=== PATIENT | male | born 1950 | race Caucasian/White ===

== ENCOUNTER 2016-10-23 21:10 | Emergency (ER) | payer MEDICARE ==
[2014-11-27 01:49] VITALS: BMI 25.1
[~2016-10-23 21:10] MED LIST: HYDROCODONE-APA1 TAB PO; ROBITUSSIN DM 110 ML PO; XANAX0.5 MG PO
[2016-10-23 22:52] LABS: BASOPHILS 0.3 % (0.0-2.0); EOSINOPHILS 3.5 % (0-7); HEMATOCRIT 36.9 % (42.0-54.0); HEMOGLOBIN 12.8 g/dL (13.5-17.5); IMMATURE GRANULOCYTES 0.1 % (0-5); LYMPHOCYTES 31.9 % (15-50); MCH 37.8 pg (26.0-34.0); MCHC 34.7 g/dL (31.0-37.0); MCV 108.8 fL (80.0-100.0); MEAN PLATELET VOLUME 10.1 fL (7.4-10.4); MONOCYTES 8.4 % (2-11); NEUTROPHILS 55.8 % (40-80); PLATELET COUNT 182 10x3/uL (130-400); RBC 3.39 10x6/uL (4.20-6.10); RDW 13.7 % (11.5-14.5); WBC 7.6 10x3/uL (4.8-10.8)
[2016-10-23 23:08] LABS: ALBUMIN 3.4 g/dL (3.4-5.0); BILIRUBIN - TOTAL 0.31 mg/dL (0.2-1.3); CALCIUM 8.4 mg/dL (8.5-10.1); CARBON DIOXIDE 32.3 mmol/L (21.0-32.0); CREATININE - SERUM 1.1 mg/dL (0.6-1.3); POTASSIUM - SERUM 4.3 mmol/L (3.5-5.1); PROTEIN - SERUM 7.4 g/dL (6.4-8.2)
[2016-10-23 23:40] LABS: APPEARANCE CLEAR (CLEAR); BILIRUBIN NEGATIVE (NEGATIVE); COLOR YELLOW (YELLOW); GLUCOSE NEGATIVE (NEGATIVE); KETONE NEGATIVE (NEGATIVE); LEUKOCYTE ESTERASE NEGATIVE (NEGATIVE); NITRITE NEGATIVE (NEGATIVE); PH 6.5 (5.0-6.0); PROTEIN NEGATIVE (NEGATIVE); SPECIFIC GRAVITY 1.015 (1.005-1.020)
== END 2016-10-24 00:15 | disposition home or self-care (01) ==
LOC: D.ER 21:10
PROVIDERS: Emergency Medicine
DX: R60.0 Localized edema (principal); J44.9 Chronic obstructive pulmonary disease, unspecified; F17.200 Nicotine dependence, unspecified, uncomplicated

== ENCOUNTER 2018-11-05 14:32 | Emergency (ER) | payer MEDICARE ==
[~2018-11-05] VITALS: Ht 177.8 cm; Wt 72.7 kg
[2018-11-05 14:58] VITALS: Ht 177.8 cm; Wt 72.7 kg
[2018-11-05] MEDS ORDERED: BLOOD PRESSURE MED (15:00)
[2018-11-05 15:24] LABS: BASOPHILS 0.2 % (0-2); EOSINOPHILS 1.5 % (0-7); HEMATOCRIT 37.2 % (42.0-54.0); HEMOGLOBIN 12.8 g/dL (13.5-17.5); IMMATURE GRANULOCYTES 0.2 % (0-5); LYMPHOCYTES 20.4 % (15-50); MCH 33.7 pg (26.0-34.0); MCHC 34.4 g/dL (31.0-37.0); MCV 97.9 fL (80.0-100.0); MEAN PLATELET VOLUME 10.9 fL (7.4-10.4); MONOCYTES 8.1 % (2-11); NEUTROPHILS 69.6 % (40-80); PLATELET COUNT 191 10x3/uL (130-400); RDW 14.2 % (11.5-14.5); WBC 8.8 10x3/uL (4.8-10.8)
[2018-11-05 15:41] LABS: ALBUMIN 3.3 g/dL (3.4-5.0); ANION GAP 8.9 mmol/L (8-16); BILIRUBIN - TOTAL 0.41 mg/dL (0.2-1.3); CALCIUM 8.4 mg/dL (8.5-10.1); CARBON DIOXIDE 30.4 mmol/L (21.0-32.0); CREATININE - SERUM 1.2 mg/dL (0.6-1.3); POTASSIUM - SERUM 4.3 mmol/L (3.5-5.1); PROTEIN - SERUM 7.8 g/dL (6.4-8.2)
[2018-11-05] MEDS ORDERED: LASIX40 MG PO (19:26)
[2018-11-05 19:35] VITALS: BP 165/82
== END 2018-11-05 19:35 | disposition home or self-care (01) ==
LOC: D.ER 14:32
PROVIDERS: Emergency Medicine
DX: R60.0 Localized edema (principal)

== ENCOUNTER → 2018-12-10 11:46 | Outpatient (CLI) | payer MEDICARE ==
[2018-11-05 14:58] VITALS: BMI 23.0
[~2018-12-10 11:46] MED LIST changes: +BLOOD PRESSURE MED; +LASIX40 MG PO
== END | disposition home or self-care (01) ==
LOC: D.RAD 11:46
PROVIDERS: ATTEND Emergency Medicine
DX: M48.061 Spinal stenosis, lumbar region without neurogenic claudication (principal)

== ENCOUNTER → 2019-01-14 10:01 | Outpatient (CLI) | payer MEDICARE | END | disposition home or self-care (01) | LOC: D.RAD 10:01 | DX: J44.1 Chronic obstructive pulmonary disease with (acute) exacerbation (principal) ==

== ENCOUNTER → 2019-05-06 12:55 | Outpatient (CLI) | payer MEDICARE ==
[2018-11-05 14:58] VITALS: BMI 23.0
== END | disposition home or self-care (01) ==
LOC: D.RAD 12:55
PROVIDERS: ATTEND Family Medicine
DX: R13.10 Dysphagia, unspecified (principal)

== ENCOUNTER → 2020-05-26 09:31 | Outpatient (CLI) | payer MEDICARE ==
[2018-11-05 14:58] VITALS: BMI 23.0
== END | disposition home or self-care (01) ==
LOC: D.CT 09:31
PROVIDERS: ATTEND Family Medicine
DX: R91.1 Solitary pulmonary nodule (principal)

== ENCOUNTER 2020-06-03 07:31 | Day surgery (SDC) | payer MEDICARE ==
[~2020-06-03] VITALS: Ht 177.8 cm; Wt 56.3 kg
[2020-06-03 08:09] VITALS: BP 128/67; Ht 177.8 cm; Wt 56.3 kg
[2020-06-03 08:46] LABS: CALC OSMOLALITY 277 mosm/kg (275-300); CALCIUM 9.3 mg/dL (8.5-10.1); CHLORIDE - SERUM 95 mmol/L (98-107); CREATININE - SERUM 0.8 mg/dL (0.6-1.3); GLUCOSE 87 mg/dL (74-106); POTASSIUM - SERUM 4.4 mmol/L (3.5-5.1); SODIUM 139 mmol/L (136-145); UREA NITROGEN 15 mg/dL (7-18); eGFR NON AFRICAN AMERICAN > 90 mL/min (90-120)
[2020-06-03 08:59] LABS: BASOPHILS 0.1 % (0-2); EOSINOPHILS 0.1 % (0-7); HEMATOCRIT 31.4 % (42.0-54.0); HEMOGLOBIN 9.8 g/dL (13.5-17.5); LYMPHOCYTES 22.4 % (15-50); MCH 27.1 pg (26.0-34.0); MCHC 31.2 g/dL (31.0-37.0); MEAN PLATELET VOLUME 9.3 fL (7.4-10.4); MONOCYTES 7.9 % (2-11); NEUTROPHILS 67.5 % (40-80); RBC 3.61 10x6/uL (4.20-6.10)
[2020-06-03 09:00] LABS: PLATELET COUNT 243 10x3/uL (130-400)
[2020-06-03 09:02] LABS: APTT 44.9 SECONDS (22.8-39.4); INR 1.35 (0.85-1.17); PROTIME 16.6 SECONDS (11.6-15.0)
[2020-06-03] MEDS ORDERED: ZOLOFT25 MG PO (09:04)
[2020-06-03] MEDS ORDERED: MIRALAX17 GM PO (09:04)
[2020-06-03] MEDS ORDERED: LOPRESSOR25 MG PO (09:04)
[2020-06-03] MEDS ORDERED: THERMOTABS 1 GM1 GM PO (09:05)
[2020-06-03] MEDS ORDERED: ATROVENT 0.02%2.5 ML UPD (09:05)
[2020-06-03] MEDS ORDERED: ACETAMINOPHEN500 M1 PO (09:05)
[2020-06-03] MEDS ORDERED: ZOFRAN4 MG PO (09:05)
[2020-06-03] MEDS ORDERED: AZITHROMYCIN500 MG PO (09:06)
[2020-06-03] MEDS ORDERED: ZESTRIL10 MG PO (09:06)
[2020-06-03] MEDS ORDERED: MYAMBUTOL100 MG PO (09:06)
[2020-06-03] MEDS ORDERED: RIFADIN IV (09:07)
[2020-06-03] MEDS ORDERED: FLOMAX0.4 MG PO (09:07)
--- NOTE | 2020-06-03 11:20 | NUR ---
PT REC'D TO ROOM 2 FROM [facility] VIA STRETCHER, MONITORS ESTAB. NURSING AID FROM [facility] AT . SEE TIRE AND TUBE REPAIRER. ALARMS ON AND C/L IN REACH.
--- NOTE | 2020-06-03 11:35 | NUR ---
VSS. DSG TO BACK C/D/I. PT UPDATED ON POC, NPO UNTIL CXR AT 1300, THEN PLAN TO D/C AT 1500. PT DENIES PAIN OR NEEDS. ALARMS ON AND C/L IN REACH.
--- NOTE | 2020-06-03 12:05 | NUR ---
VSS. R UPPER BACK DSG C/D/I, NO REDNESS OR DRAINAGE NOTED.
--- NOTE | 2020-06-03 14:00 | NUR ---
CXR REVIEWED BY MD Bianca [place] TO RESUME DIET. SANDWICH AND SPRITE PROVIDED. SMELTER OPERATOR AT ASSISTING PT. VSS. C/L IN REACH.
--- NOTE | 2020-06-03 14:40 | NUR ---
R UPPER BACK DSG C/D/I, NO REDNESS OR DRAINAGE NOTED. VSS. PT DENIES PAIN OR SOB. PIV D/C'D INTACT, DSG APPLIED. PT UP TO GET DRESSED AND GO TO BR WITH RESOURCE DIRECTOR ASSISTING.
--- NOTE | 2020-06-03 14:50 | NUR ---
ALL DISCHARGE INSTRUCTIONS REVIEWED WITH PT. NO QUESTIONS AT THIS TIME.
--- NOTE | 2020-06-03 14:55 | NUR ---
PT DISCHARGED TO [facility] VIA OWN WC. PT HAS ALL BELONGINGS AND PAPERWORK..
== END 2020-06-03 14:55 | disposition home or self-care (01) ==
LOC: D.SP 07:31 → D.CT 10:00 → D.SP 10:00
PROVIDERS: Radiology Diagnostic Radiology; ATTEND Family Medicine
DX: R91.1 Solitary pulmonary nodule (principal); J85.0 Gangrene and necrosis of lung; B96.89 Other specified bacterial agents as the cause of diseases classified elsewhere; E11.9 Type 2 diabetes mellitus without complications; I10 Essential (primary) hypertension; J44.9 Chronic obstructive pulmonary disease, unspecified; K59.00 Constipation, unspecified; M54.5 Low back pain; N18.2 Chronic kidney disease, stage 2 (mild); R64 Cachexia; Z87.891 Personal history of nicotine dependence; R05 Cough; E87.1 Hypo-osmolality and hyponatremia; R00.0 Tachycardia, unspecified